=== PATIENT | male | born 1995 | race Caucasian/White ===

== ENCOUNTER → 2017-01-17 | Outpatient (CLI) | payer BC ==
--- NOTE | 2017-01-17 19:10 | RADIOLOGY REPORT PS360 ---
US SCROTUM HISTORY: LT TESTICULAR PAIN Patient Age: 21 years: Male Ordering Physician: Patty SWENSON TECHNIQUE: Ultrasound testicle performed COMPARISON :No previous studies FINDINGS The patient reportedly was only borderline with a left testicle with congenital absent right testicle. The left testicle appears generous size likely reflecting some compensatory hypertrophy The left testicle 5.5 cm X 4.6 cm in x 2.6 cm The initial images with modest flow but I personally observed and there does seem to the adequate flow to the testicle throughout. There is a generous epididymis both head and tail reflect epididymitis.. Could Reflect epididymitis No free fluid at the testicle. No hydrocele Also note there are a few generous serpiginous veins about the testicle suspect developing varicocele. Prominent veins are also seen at the tail of the epididymis region is identified no change with Valsalva Consider urology consult & follow-up.- Particular if pain should increase or persist.. Important this maintained optimal function of this remaining left testicle in this young patient IMPRESSION: . Congenital Absent right testicle. Left testicle generous in size, likely mildly hypertrophied no testicular mass. Adequate color Doppler flow =no torsion A generous epididymis head & tail could reflect modest epididymitis. Also note generous veins at testicle suspect for developing early varicocele (Consider urology consult to be cautious in this patient given overall history and features)
== END ==
LOC: RAD 15:15
DX: N50.812 Left testicular pain (principal); N50.9 Disorder of male genital organs, unspecified